=== PATIENT | male | born 1980 | race Two or more races ===

== ENCOUNTER 2017-08-31 11:25 | Emergency (ER) | payer OTHER ==
[2017-08-31 11:30] VITALS: BP 124/73; PULSE 72; TEMP 98.8; BMI 33.0
[2017-08-31] MEDS ORDERED: KETOROLAC TROMETHAMINE 60 MG/2 ML VIAL IM ONE (12:41)
[2017-08-31] MEDS ORDERED: KETOROLAC TROMETHAMINE 60 MG/2 ML VIAL ONE (12:42)
--- NOTE | 2017-08-31 12:47 | PDOC ---
History of Present Illness - General Chief Complaint: Back Pain Stated Complaint: BACK PAIN Time Seen by Provider: 08/31/17 11:32 History Source: Patient - History of Present Illness Occurred: reports: other Pain Location: reports: back Past History - Past Medical History Allergies/Adverse Reactions: Allergies Allergy/AdvReac Type Severity Reaction Status Date / Time No Known Allergies Allergy Verified 08/31/17 11:30 Home Medications: Ambulatory Orders Ibuprofen [Motrin -] 800 mg PO Q6H #30 tablet 08/31/17 COPD: No - Immunization History Immunization Up to Date: Yes - Suicide/Smoking/Psychosocial Hx Smoking History: Current some day smoker Have you smoked in the past 12 months: No Number of Cigarettes Smoked Daily: 10 Information on smoking cessation initiated: No Hx Alcohol Use: Yes (social) Review of Systems - Review of Systems Constitutional: No: Chills, Fever ABD/GI: Yes: Constipated. No: Diarrhea, Nausea, Rectal Bleeding, Vomiting, Abdominal cramping, Tarry Stools : No: Dysuria, Discharge, Hematuria *Physical Exam - Vital Signs Last Vital Signs Temp Pulse Resp BP Pulse Ox 98.8 F 72 18 124/73 99 08/31/17 11:28 08/31/17 11:28 08/31/17 11:28 08/31/17 11:28 08/31/17 11:28 - Physical Exam General Appearance: Yes: Appropriately Dressed, Mild Distress HEENT: positive: Normal Voice Neck: positive: Supple Respiratory/Chest: negative: Respiratory Distress Gastrointestinal/Abdominal: positive: Soft. negative: Tender Musculoskeletal: negative: CVA Tenderness, Vertebral Tenderness Integumentary: positive: Dry, Warm Neurologic: positive: Fully Oriented, Alert, Normal Mood/Affect Medical Decision Making - Medical Decision Making 08/31/17 12:43 36-year-old male, denies any past medical history, here with bilateral lower back pain that started 2 days ago. Patient states he was resting when pain started. Unable to describe pain, but states it is constant and worse with certain movements. Denies dysuria, hematuria, nausea, vomiting, fever or chills. No trauma or other inciting agents and no history of back pain in the past. Patient states he's been trying whzj-ejw-[id number] medications such as Tylenol with no relief. States he took a Percocet from a friend which did help his pain but reports possibles constipation since taking meds. See exam Lower back pain Possible MSK, less likely renal colic No trauma -pain control -UA 08/31/17 13:06 UA neg. Pt improved w/ meds. Will d/c with motrin and pmd f/u if pain persists. Told to stop taking narcotics for pain as this is probably the cause of his constipation. *DC/Admit/Observation/Transfer Diagnosis at time of Disposition: Back pain Qualifiers: Back pain location: low back pain Chronicity: unspecified Back pain laterality : bilateral Sciatica presence: without sciatica Qualified Code(s): M54.5 - Low back pain - Discharge Dispostion Disposition: HOME Condition at time of disposition: Improved - Prescriptions Prescriptions: Ibuprofen [Motrin -] 800 mg PO Q6H #30 tablet - Referrals Referrals: ON STAFF,NOT [Primary Care Provider] - - Patient Instructions Printed Discharge Instructions: Low Back Pain Additional Instructions: The cause of your back pain is possibly muscular, but if pain persists, please follow-up with your primary care physician for further evaluation. Your urine was normal and showed no signs of infection or evidence of kidney stones at this time. Take 800 mg of Motrin every 6 hours as needed for pain Stop taking percocet or other narcotic for pain as this can make your constipation worse. Increase water and fiber in your diet and purchase milk of magnesia [id number] and use as directed for constipation - Post Discharge Activity
[2017-08-31 12:58] LABS: URINE APPEARANCE CLEAR; URINE BILIRUBIN NEGATIVE (<2.0 mg/dL); URINE COLOR YELLOW; URINE GLUCOSE (UA) NEGATIVE (NEGATIVE); URINE KETONE NEGATIVE (NEGATIVE); URINE LEUK ESTERASE NEGATIVE (NEGATIVE); URINE NITRITE NEGATIVE (NEGATIVE); URINE PROTEIN NEGATIVE (NEGATIVE); URINE UROBILINOGEN NEGATIVE mg/dL (0.2-1.0)
== END 2017-08-31 13:22 | disposition home or self-care (01) ==
LOC: JERFT 11:25
PROC: 3E0233Z Introduction of Anti-inflammatory into Muscle, Percutaneous Approach (ICD-10-PCS; principal; 2017-08-31)
DX: M54.5 Low back pain (principal); F17.210 Nicotine dependence, cigarettes, uncomplicated
CPT/HCPCS: 81003; 96372; 99281-25

== ENCOUNTER 2018-06-21 00:30 | Emergency (ER) | payer SELFPAY ==
--- NOTE | 2018-06-21 02:00 | PDOC ---
History of Present Illness - General Stated Complaint: INJURY,FACE Time Seen by Provider: 06/21/18 00:40 History Source: Patient Exam Limitations: No Limitations - History of Present Illness Initial Comments: 06/21/18 01:58 HISTORY OF PRESENT ILLNESS: 37-year-old male denies medical history presents emergency department for evaluation of facial laceration sustained status post syncopal episode. Patient reports wheezing there was standing up when he began to feel dizzy and remembers everything going black and waking up on the floor with bleeding from his face. Patient reports he was smoking marijuana earlier tonight prior to the syncopal episode. He denies chest pain, shortness of breath , abdominal pain, nausea, vomiting, blurry vision, dizziness now. He denies any incontinence of bladder or bowel discomfort denies any seizure-like activity during collapse. No recent travel or sick contacts. PAST MEDICAL HISTORY: Denies past medical history SURGICAL HISTORY: Denies ALLERGIES: No known drug allergies REVIEW OF SYSTEMS General/Constitutional: Denies fever or chills. Denies weakness, weight change. HEENT: Denies change in vision. Denies ear pain or discharge. Denies sore throat. Cardiovascular: Denies chest pain or shortness of breath. Respiratory: Denies cough, wheezing, or hemoptysis. Gastrointestinal: Denies nausea, vomiting, diarrhea or constipation. Denies rectal bleeding. Genitourinary: Denies dysuria, frequency, or change in urination. Musculoskeletal: Denies joint or muscle swelling or pain. Denies neck or back pain. Skin and breasts: see HPI Neurologic: see HPI Psychiatric: Denies depression or anxiety. Endocrine: Denies increased thirst. Denies abnormal weight change. Hematologic/Lymphatic: Denies anemia, easy bleeding, or history of blood clots. Allergic/Immunologic: Denies hives or skin allergy. Denies latex allergy. PHYSICAL EXAM General Appearance: Well-appearing, appropriately dressed. No apparent distress , no intoxication. HEENT: EOMI, PERRLA, normal ENT inspection, normal voice, TMs normal, pharynx normal. No conjunctival pallor. No photophobia, scleral icterus. Neck: Supple. Trachea midline. No tenderness, rigidity, carotid bruit, stridor , lymphadenopathy, or thyromegaly. Respiratory/Chest: Lungs CTAB. No shortness of breath, chest tenderness, respiratory distress, accessory muscle use. No crackles, rales, rhonchi, stridor , wheezing, dullness Cardiovascular: RRR. S1, S2. No JVD, murmur, bradycardia, tachycardia. Vascular Pulses: Dorsalis-Pedis (R): 2+, Dorsalis-Pedis (L): 2+ Gastrointestinal/Abdominal: Normal bowel sounds. Abdomen soft, non-distended. No tenderness or rebound tenderness. No organomegaly, pulsatile mass, guarding, hernia, hepatomegaly, splenomegaly. Lymphatic: No adenopathy, tenderness. Musculoskeletal/Extremities: Normal inspection. FROM of all extremities, normal capillary refill. Pelvis Stable. No CVA tenderness. No tenderness to extremities, pedal edema, swelling, erythema or deformity. Integumentary: Approximately 2 cm linear laceration present to the superior lateral aspect of the left orbit. Bleeding is controlled at present. Neurologic: contract clerk II-XII intact. Fully oriented, alert. Appropriate mood/affect. Motor strength 5/5. No appreciable EOM palsy, facial droop or sensory deficit. 06/21/18 02:05 Past History - Past Medical History Allergies/Adverse Reactions: Allergies Allergy/AdvReac Type Severity Reaction Status Date / Time No Known Allergies Allergy Verified 08/31/17 11:30 Home Medications: Ambulatory Orders Ibuprofen [Motrin -] 800 mg PO Q6H #30 tablet 08/31/17 COPD: No - Immunization History Immunization Up to Date: Yes - Suicide/Smoking/Psychosocial Hx Smoking History: Current some day smoker Have you smoked in the past 12 months: No Number of Cigarettes Smoked Daily: 10 Hx Alcohol Use: Yes (social) Heart Score/ECG Review - History History: Slightly suspicious - Electrocardiogram EKG: Normal - Age Age: </= 45 - Risk Factors Based on the list above the patient has:: No risk factors known - Troponin Troponin: </= normal limit - Score Heart Score - Total: 0 - ECG Intrepretation Rhythm: Regular Rhythm - ECG Impressions Normal ECG: Yes Procedures - Consent Consent obtained: Verbal, From Patient - Laceration/Wound Repair Left Anterior Eye Wound Length: to 2.5 cm Wound Explored: clean Wound's Depth, Shape: superficial Irrigated w/ Saline: Yes Betadine Prep: Yes Anesthesia: 1% Lidocaine Amount of Anesthetic (ccs): 3 Wound Debrided: minimal Wound Repaired With: Sutures Suture Size/Type: 5:0, nylon Number of Sutures: 3 Layer Closure: No Sterile Dressing Applied: Yes Progress: 06/21/18 04:04 Patient tolerated well ED Treatment Course - LABORATORY CBC & Chemistry Diagram: 06/21/18 02:50 06/21/18 02:50 - ADDITIONAL ORDERS Additional order review: Laboratory Results 06/21/18 06/21/18 02:50 02:50 PT with INR 12.30 INR 1.04 Sodium 141 Potassium 3.9 Chloride 105 Carbon Dioxide 31 Anion Gap 5 L BUN 14 Creatinine 1.3 Creat Clearance w eGFR > 60 Random Glucose 92 Calcium 8.6 Magnesium 2.4 Total Bilirubin 0.3 AST 25 ALT 28 Alkaline Phosphatase 74 Creatine Kinase 539 H Troponin I < 0.02 Total Protein 6.7 Albumin 3.9 06/21/18 02:50 RBC 5.15 MCV 87.8 MCHC 35.5 RDW 13.5 MPV 8.4 Neutrophils % 41.4 L Lymphocytes % 45.8 H Monocytes % 9.0 Eosinophils % 3.4 Basophils % 0.4 - RADIOLOGY Radiology Studies Ordered: Category Date Time Status HEAD CT WITHOUT CONTRAST [CT] Stat CT Scan 06/21/18 01:57 Taken CHEST PA & LAT [RAD] Stat Radiology 06/21/18 01:56 Ordered Medical Decision Making - Medical Decision Making 06/21/18 02:06 A/P: 37-year-old male with syncopal episode at the using marijuana Normal cardiac exam Neurologic exam is within normal limits No nystagmus present Gait steady Less likely seizure is no loss of continence, oral trauma or witnessed tonic- clonic movements. Patient without history of seizures. Labs Urine EKG Chest x-ray CT of the head Reassess 06/21/18 03:43 CT of the head as read by imaging senior sales consultant: No acute territorial infarct, hemorrhage or space occupying mass. Chest x-rays read by me: No active cardiopulmonary disease noted. Laceration repair-see procedure note for details 06/21/18 04:35 EKG sinus bradycardia with rate of 58. Normal intervals noted. No ischemic changes present. Laboratory testing remarkable for a CK of 539. Initial troponin is <0.02. I'll discharge the patient home with referral for [facility] internal medicine clinic. I discussed the physical exam findings, ancillary test results and final diagnoses with the patient. I answered all of the patient's questions. The patient was satisfied with the care received and felt comfortable with the discharge plan and treatment plan. The patient will call their primary care physician within 24 hours to arrange follow-up and will return to the Emergency Department with any new, persistent or worsening symptoms. *DC/Admit/Observation/Transfer Diagnosis at time of Disposition: Syncope and collapse Facial laceration Qualifiers: Encounter type: initial encounter Qualified Code(s): S01.81XA - Laceration without foreign body of other part of head, initial encounter Closed head injury Qualifiers: Encounter type: initial encounter Qualified Code(s): S09.90XA - Unspecified injury of head, initial encounter - Discharge Dispostion Disposition: HOME Condition at time of disposition: Fair Decision to Admit order: No - Referrals Referrals: [facility] [place] [facility] [Provider Group] - Patient Instructions Printed Discharge Instructions: DI for Closed Head Injury Additional Instructions: Your emergency department evaluation is not completed to follow-up with her primary doctor. Keep wound clean and dry Avoid strenuous activity/exercise to create a hot or sweaty environment until sutures are removed Reapply bacitracin ointment 2 times a day until sutures are removed Return to emergency Department or private physician in 5-7 days for suture removal May use Tylenol or Motrin for pain relief Return immediately to emergency department for redness, swelling, pain, or signs of infection - Post Discharge Activity
[2018-06-21 03:12] LABS: BASO % 0.4 % (0-2.0); EOS % 3.4 % (0-4.5); HEMATOCRIT 45.3 % (35.4-49); HEMOGLOBIN 16.1 GM/dL (11.7-16.9); LYMPH % 45.8 % (8-40); MCH 31.1 pg (25.7-33.7); MCHC 35.5 g/dl (32.0-35.9); MEAN CELL VOLUME 87.8 fl (80-96); MEAN PLT VOLUME 8.4 fl (7.5-11.1); NEUT % 41.4 % (42.8-82.8); PLATELET COUNT 183 K/MM3 (134-434); RBC 5.15 M/mm3 (4.00-5.60); RDW 13.5 % (11.9-15.9); WHITE BLOOD COUNT 6.8 K/mm3 (4.0-10.0)
[2018-06-21 03:44] LABS: INR 1.04 (0.83-1.09); PROTHROMBIN TIME (PATIENT) 12.3 SEC (9.7-13.0)
[2018-06-21 04:09] LABS: ALBUMIN 3.9 g/dl (3.4-5.0); ALK PHOS 74 U/L (45-117); ANION GAP 5 MMOL/L (8-16); BILIRUBIN,TOTAL 0.3 mg/dL (0.2-1); BLOOD UREA NITROGEN 14 mg/dL (7-18); CALCIUM 8.6 mg/dL (8.5-10.1); CHLORIDE 105 mmol/L (98-107); CO2 31 mmol/L (21-32); CREATININE 1.3 mg/dL (0.55-1.3); GLUCOSE,RANDOM 92 mg/dL (74-106); MAGNESIUM 2.4 mg/dL (1.8-2.4); POTASSIUM 3.9 mmol/L (3.5-5.1); SGOT/AST 25 U/L (15-37); SGPT/ALT 28 U/L (13-61); SODIUM 141 mmol/L (136-145); TOT PROT 6.7 g/dl (6.4-8.2)
[2018-06-21 04:50] VITALS: PULSE 67; TEMP 97.9
[2018-06-21 05:01] VITALS: BP 110/56; BMI 25.8
[2018-06-21 05:03] LABS: COCAINE, UR NEGATIVE ng/ml (CUTOFF=300); METHADONE, UR NEGATIVE ng/ml (CUTOFF=300); OPIATES, URI NEGATIVE ng/ml (CUTOFF=300); PHENCYCLIDINE,URINE NEGATIVE ng/ml (CUTOFF=25); URINE AMPHETAMINES NEGATIVE ng/ml (CUTOFF=500); URINE BARBITURATES NEGATIVE ng/ml (CUTOFF=200); URINE BENZODIAZEPINES NEGATIVE ng/ml (CUTOFF=200)
[2018-06-21 09:20] LABS: PH,URINE 5.5 (5.0-8.0); URINE APPEARANCE Clear; URINE BILIRUBIN Negative (<2.0 mg/dL); URINE COLOR Yellow; URINE GLUCOSE (UA) Negative (NEGATIVE); URINE KETONE Trace (NEGATIVE); URINE LEUK ESTERASE Negative (NEGATIVE); URINE NITRITE Negative (NEGATIVE); URINE PROTEIN Trace (NEGATIVE); URINE UROBILINOGEN 0.2 mg/dL (0.2-1.0)
--- NOTE | 2018-06-22 11:54 | EKG ---
Test Reason : Blood Pressure : / mmHG Vent. Rate : 058 BPM Atrial Rate : 058 BPM P-R Int : 148 ms QRS Dur : 086 ms QT Int : 412 ms P-R-T Axes : 072 074 061 degrees QTc Int : 404 ms SINUS BRADYCARDIA WITH SINUS ARRHYTHMIA POSSIBLE ACUTE PERICARDITIS ABNORMAL ECG NO PREVIOUS ECGS AVAILABLE Confirmed by KIRK CASTILLO MD ([id number]) on 06/22/2018 11:54:27 AM Referred By: Confirmed By:KIRK CASTILLO MD
== END 2018-06-21 05:01 | disposition home or self-care (01) ==
LOC: JER 00:30
PROC: 0HQ1XZZ Repair Face Skin, External Approach (ICD-10-PCS; principal; 2018-06-21)
DX: R55 Syncope and collapse (principal); S01.81XA Laceration without foreign body of other part of head, initial encounter; W18.39XA Other fall on same level, initial encounter; Y93.89 Activity, other specified; Y92.89 Other specified places as the place of occurrence of the external cause; Y99.8 Other external cause status
CPT/HCPCS: 36415; 70450-TC; 71046-TC-FY; 80053; 80307; 81003; 82550; 82553; 83735; 84484; 85025; 85610; 93005; 93010; 99281-25

== ENCOUNTER 2018-09-27 12:16 | Emergency (ER) | payer SELFPAY | END 2018-09-27 13:13 | disposition home or self-care (01) | LOC: JERFT 12:16 ==

== ENCOUNTER 2020-04-08 15:52 | Emergency (ER) | payer OTHER ==
[2020-04-08 16:05] VITALS: BP 133/79; PULSE 90; TEMP 98; BMI 29.5
[2020-04-08] MEDS ORDERED: ERYTHROMYCIN 0.5% OPHTHALMIC OINTMENT 3.5 GM TUBE OD ONE (16:10)
[2020-04-08] MEDS ORDERED: ERYTHROMYCIN 0.5% OPHTHALMIC OINTMENT 3.5 GM TUBE ONE (16:13)
== END 2020-04-08 16:41 | disposition home or self-care (01) ==
LOC: JERFT 15:52
DX: H10.31 Unspecified acute conjunctivitis, right eye (principal)
CPT/HCPCS: 99283-25

== ENCOUNTER 2021-01-04 10:30 | Emergency (ER) | payer OTHER ==
[2021-01-04 10:47] VITALS: BP 121/82; PULSE 81; TEMP 98.5; BMI 22.1
[2021-01-04 12:03] LABS: URINE APPEARANCE CLEAR; URINE BILIRUBIN NEGATIVE (NEGATIVE); URINE COLOR YELLOW; URINE GLUCOSE (UA) NEGATIVE (NEGATIVE); URINE KETONE NEGATIVE (NEGATIVE); URINE LEUK ESTERASE NEGATIVE (NEGATIVE); URINE NITRITE NEGATIVE (NEGATIVE); URINE PROTEIN NEGATIVE (NEGATIVE); URINE UROBILINOGEN 0.2 mg/dL (0.2-1.0)
== END 2021-01-04 13:27 | disposition home or self-care (01) ==
LOC: JERFT 10:30
DX: R35.0 Frequency of micturition (principal); M54.5 Low back pain
CPT/HCPCS: 36415; 74176-TC; 81003; 87086; 87491; 87591; 99284-25

== ENCOUNTER 2024-01-06 14:44 | Emergency (ER) | payer OTHER ==
[2024-01-06 15:18] VITALS: BP 128/89; PULSE 80; RESP 16; TEMP 98.1; BMI 30.8
[2024-01-06] MEDS: IBUPROFEN 600 MG TABLET (FP) PO ONE (15:56)
== END 2024-01-06 16:09 | disposition home or self-care (01) ==
LOC: JERFT 14:44
DX: H66.012 Acute suppurative otitis media with spontaneous rupture of ear drum, left ear (principal)
CPT/HCPCS: 99283-25

== ENCOUNTER 2024-01-15 00:32 | Emergency (ER) | payer OTHER ==
[2024-01-15 00:42] VITALS: BP 146/85; PULSE 81; RESP 20; TEMP 98.4; BMI 32.1
== END 2024-01-15 01:28 | disposition home or self-care (01) ==
LOC: JER 00:32
DX: H60.503 Unspecified acute noninfective otitis externa, bilateral (principal)
CPT/HCPCS: 99283-25

== ENCOUNTER 2024-04-09 11:15 | Emergency (ER) | payer OTHER ==
[2024-04-09 12:30] VITALS: BP 116/76; PULSE 83; RESP 18; TEMP 98.3; BMI 31.4
[2024-04-09] MEDS ORDERED: METHOCARBAMOL 500 MG TABLET ONE (13:09)
[2024-04-09] MEDS ORDERED: predniSONE 20 MG TABLET (UD) ONE (13:09)
[2024-04-09] MEDS ORDERED: ACETAMINOPHEN 500 MG TABLET (FP) ONE (13:09)
[2024-04-09] MEDS: METHOCARBAMOL 500 MG TABLET PO ONE (13:19)
[2024-04-09] MEDS: predniSONE 20 MG TABLET (UD) PO ONE (13:19)
[2024-04-09] MEDS: ACETAMINOPHEN 500 MG TABLET (FP) PO ONE (13:20)
[2024-04-09 13:24] LABS: EPI CELLS 7 /uL (0-25.1); HYALINE CASTS 1 /uL (0-3.1); PH,URINE 5.5 (5.0-8.0); URINE APPEARANCE CLEAR; URINE BACTERIA 10 /uL (0-1359); URINE BILIRUBIN NEGATIVE (NEGATIVE); URINE COLOR YELLOW; URINE GLUCOSE (UA) NEGATIVE (NEGATIVE); URINE KETONE TRACE (NEGATIVE); URINE LEUK ESTERASE TRACE (NEGATIVE); URINE NITRITE NEGATIVE (NEGATIVE); URINE PROTEIN NEGATIVE (NEGATIVE); URINE RBC 33 /uL (0-23.9); URINE UROBILINOGEN 0.2 mg/dL (0.2-1.0); URINE WBC 107 /uL (0-25.8)
[2024-04-09 15:35] LABS: HIV INTERPRETATION NEGATIVE (NEGATIVE)
== END 2024-04-09 14:01 | disposition home or self-care (01) ==
LOC: JER 11:15
DX: M54.50 Low back pain, unspecified (principal); K08.89 Other specified disorders of teeth and supporting structures
CPT/HCPCS: 36415; 81003; 86803; 87086; 87389; 99283-25